=== PATIENT | female | born 1995 | race Two or more races ===

== ENCOUNTER → 2022-05-26 | Outpatient (CLI) | payer OTHER | LOC: LAB 12:28 | DX: R30.0 Dysuria (principal); R14.3 Flatulence | CPT/HCPCS: 74018; 87086 ==

== ENCOUNTER → 2022-06-01 | Outpatient (CLI) | payer OTHER | LOC: CT 07:37 | DX: R30.0 Dysuria (principal); R10.9 Unspecified abdominal pain ==